=== PATIENT | male | born 1975 | race Native Hawaiian/Other Pacific Islander ===

== ENCOUNTER 2018-10-18 17:12 | Emergency (ER) | payer OTHER ==
--- NOTE | 2018-10-18 21:43 | Emergency Department Report ---
ED General Adult HPI - General Chief complaint: Nausea/Vomiting/Diarrhea Stated complaint: FLU LIKE SYMPTOMS Time Seen by Provider: 10/18/18 21:35 Source: patient, patient coordinator front desk Mode of arrival: Ambulatory Limitations: Language Barrier - History of Present Illness Initial comments: 42-year-old male comes in for body aches with nausea vomiting diarrhea and ear pain since Sunday. Patient denies any cough. Patient reports he has been seen by his provider and was placed on Tamiflu and azithromycin and naproxen. Patient was seen on Sunday. Patient denies any fever. Patient denies any abdominal pain. Patient has been working since being on medication and sick and has been allowed his body to rest. H&H is here with his and son. -: days(s) (5) Consistency: intermittent Improves with: medication Associated Symptoms: loss of appetite, nausea/vomiting Treatments Prior to Arrival: NSAID (naproxen), other (Tamiflu, azithromycin) - Related Data Allergies Allergy/AdvReac Type Severity Reaction Status Date / Time No Known Allergies Allergy Unverified 10/18/18 17:25 ED Review of Systems ROS: Stated complaint: FLU LIKE SYMPTOMS Other details as noted in HPI Comment: All other systems reviewed and negative ENT: ear pain Gastrointestinal: nausea, vomiting, diarrhea. denies: abdominal pain ED Past Medical Hx - Past Medical History Previous Medical History?: No - Surgical History Past Surgical History?: No - Social History Smoking Status: Never Smoker Substance Use Type: None ED Physical Exam - General Limitations: Language Barrier General appearance: alert, in no apparent distress - Head Head exam: Present: atraumatic, normocephalic - Eye Eye exam: Present: normal appearance - ENT ENT exam: Present: mucous membranes moist - Neck Neck exam: Present: normal inspection - Respiratory Respiratory exam: Present: normal lung sounds bilaterally. Absent: respiratory distress - Cardiovascular Cardiovascular Exam: Present: regular rate, normal rhythm. Absent: systolic murmur, diastolic murmur, rubs, gallop - GI/Abdominal GI/Abdominal exam: Present: soft, normal bowel sounds - Rectal Rectal exam: Present: deferred - Extremities Exam Extremities exam: Present: normal inspection - Back Exam Back exam: Present: normal inspection - Neurological Exam Neurological exam: Present: alert, oriented X3 - Psychiatric Psychiatric exam: Present: normal affect, normal mood - Skin Skin exam: Present: warm, dry, intact, normal color. Absent: rash ED Course Vital Signs 10/18/18 17:26 Temperature 98.9 F Pulse Rate 94 H Respiratory 18 Rate Blood Pressure 133/79 O2 Sat by Pulse 97 Oximetry ED Medical Decision Making - Medical Decision Making Patient has been evaluated by this provider in fast track. Discussed with patient and family to continue with Tamiflu, azithromycin and naproxen. Discussed with patient and family that he needs to drink plenty of fluids advance his diet as tolerated and rest. I discussed the patient does not need to work he needs to allow his body to rest so he will feel better. Patient verbalized understanding. Critical care attestation.: If time is entered above; I have spent that time in minutes in the direct care of this critically ill patient, excluding procedure time. ED Disposition Clinical Impression: Viral syndrome Disposition: DC-01 TO HOME OR SELFCARE Is pt being admited?: No Does the pt Need Aspirin: No Condition: Stable Instructions: Viral Syndrome (ED) Additional Instructions: Please continue with all medication that has been prescribed by Dr. Abdulkadir Estrada notes practitioner. Please allow her body to rest. Please increase clear fluid intake and advance her diet as tolerated. Contine con todos los medicamentos que le haya recetado el bernardino Estrada. Por favor, permita que patino cuerpo descanse. Aumente la ingesta de lquidos familia y avance patino dieta segn lo tolerado. Referrals: ABDULKADIR ESTRADA III, [facility] [Referring] - 3-5 Days Forms: Work/School Release Form(ED), Accompanied Note Print Language: CITIZ[place] OF [place]
== END 2018-10-18 22:06 | disposition home or self-care (01) ==
LOC: ED 17:12
DX: B34.9 Viral infection, unspecified (principal)
CPT/HCPCS: 99282